=== PATIENT | female | born 2005 | race Hispanic/Latino ===

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

== ENCOUNTER 2024-07-14 16:28 | Emergency (ER) | payer SELFPAY ==
[~2024-07-14] VITALS: Ht 154.9 cm; Wt 76.3 kg
[2024-07-14] MEDS ORDERED: SULF1TAB42 PO (18:03)
--- NOTE | 2024-07-14 18:04 | ERN ---
ED Note History of Present Illness Stated Complaint: BREAST ISSUE Chief Complaint: Breast Problem Time Seen by MD: 16:49 Time Seen by Midlevel: 16:49 Dictation: Patient is a 19-year-old female with no past medical history who presents to the emergency department with complaints of left breast redness onset two days ago. Patient denies any fevers or drainage. Denies any trauma insect bite. Allergies: Coded Allergies: No Known Allergies (Unverified Allergy, Unknown, 07/01/21) No Known Drug Allergies (Unverified Allergy, Unknown, 07/23/21) Home Meds Active Scripts Clindamycin HCl (Clindamycin HCl) 300 Mg Capsule, 1 CAP PO QID for 10 Days, #40 CAP 0 Refills Prov:[facility]I [facility] 07/14/24 Reported Medications Vit #76/Iron,Carb/FA (Pnv 29-1 Tablet) 1 Each Tablet, 1 EACH PO AM, TAB 07/22/21 Ferrous Sulfate (Iron) 325 Mg Tablet, 325 MG PO BID, TAB 07/22/21 Discontinued Scripts Sulfamethoxazole/Trimethoprim (Bactrim Ds Tablet) 800 Mg-160 Mg Tablet, 1 TAB PO BID for 7 Days, #14 TAB 0 Refills Prov:Y[facility]MANI [facility] 07/14/24 Past Medical History Past Medical History: No Pertinent History Surgical History: None : 1 Para: 1 RN Note Reviewed/Agreed w/PFSH: Yes Review of System Dictation Constitutional: Negative for fever,chills, and weight loss Eyes: Negative for injury, pain,redness, and discharge ENT: Negative for injury,pain or swelling Cardiovascular: Negative for chest pain, palpitations, and edema Respiratory: Negative for shortness of breath, cough, and wheezing, Abdomen/GI: Negative for abdominal pain, nausea, vomiting, diarrhea, and constipation Back: Negative for injury and pain : Negative for injury, bleeding and discharge MS/Extremity: Negative for injury and deformity Skin: Negative for rash, and discoloration. positive for cellulitis of left breast. Neuro: Negative for headache, weakness, numbness, tingling, and seizure Psych: Negative for suicide ideation, homicidal ideation, and hallucinations Initial Vital Sign VS Vital Signs Date Time Temp Pulse Resp B/P (MAP) Pulse Ox O2 Delivery O2 Flow Rate FiO2 07/14/24 16:30 99.0 98 16 104/60 99 Room Air 07/14/24 16:38 0 21 Physical Exam Dictation Vital Signs reviewed General Appearance: Alert, oriented x 3, no acute distress, well developed, nourished. Head and Face: non-traumatic. Eyes: PERRL, pink conjunctivas, eyelid no trauma, anterior chamber with arcus senilis. Ears: Pinnas intact and no signs of trauma or erythema ear canals clear and no discharge TM no erythema Nose: No discharge, no bleeding. Oropharynx: Mouth normal, tongue pink. pharynx clear,no erythema, tonsils no exudates, no abscesses noted, mucous membrane moist Neck: Supple, non-tender, no thyromegaly, no masses, no JVD, no bruits Breast:Deferred Chest:No tenderness, no crepitus, no paradoxical movement, no retractions Lungs:Clear, well-ventilated, symmetric, no rales, no wheezing, no rhonchi, no stridor, good breath sounds bilaterally Heart: Regular rate, regular rhythm, no murmur, no gallops Vascular: no peripheral edema, Abdomen: Soft, positive bowel sounds, nondistended, no guarding, nontender, no rebound, no masses no hepatomegaly, no splenomegaly, no Degroot's sign, no hernias. Rectal: Deferred Genital: Deferred Neurological: Normal speech, motor function intact, sensory function intact Musculoskeletal: Neck nontender, full range of motion, back nontender, full range of motion, Extremities: nontender, full range of motion Skin: Color pink, dry, no turgor, no rash, no lacerations, no abrasions, no contusions.erythema to left breast aroun 3 0clock near nipple area, no drainage, warmth to touch, about 3cm in diameter. Lymphatic: Deferred Results (Laboratory/Radiology) Labs Reviewed?: Yes ED Course ED Course Orders Procedure Category Date Status Time ,Urine Test LAB 07/14/24 Logged 17:36 Ceftriaxone 1g Vial PHA 07/14/24 Complete (Rocephine 1g Inj) 18:30 Current Medications Medications (Trade) Dose Ordered Sig/Susan Route PRN Reason Start Time Stop Time Status Last Admin Dose Admin Ceftriaxone Sodium (ROCEphine 1G INJ) 1 gm ONCE ONCE IV 07/14/24 18:30 07/14/24 18:31 DC Vital Signs Date Time Temp Pulse Resp B/P (MAP) Pulse Ox O2 Delivery O2 Flow Rate FiO2 07/14/24 16:38 99.0 98 16 104/60 99 Room Air* 0 21 07/14/24 16:30 99.0 98 16 104/60 99 Room Air Medical Decision Making MDM Patient is a 19-year-old female with no past medical history who presents to the emergency department with complaints of left breast redness onset two days ago. Patient denies any fevers or drainage. Denies any trauma insect bite. Patient with cellulitis to left breast. Nontoxic appearing. No fevers. We will be giving antibiotics and discharged to follow up with PCP. Differential diagnosis: Cellulitis, abscess, allergic reaction Need for hospitalization: Patient does not meet criteria for hospitalization. There are no social concerns with this patient. DX & DISP Disposition: Discharge Departure Impression: Primary Impression: Cellulitis of left breast Condition: Stable Scripts Clindamycin HCl (Clindamycin HCl) 300 Mg Capsule 1 CAP PO QID for 10 Days, #40 CAP 0 Refills Prov: YASMANI JOHANSEN 07/14/24 Additional Instructions: Please follow up with your primary doctor in 1-2 days. If symptoms worsen please return to ER., severe fever develop, worsening infection. Taking medications as prescribed. FOLLOW-UP WITH PRIMARY CARE PROVIDER IN 1 TO 2 DAYS. TAKE MEDICATIONS DIRECTED HERE IN THE EMERGENCY ROOM. OKAY TO CONTINUE HOME MEDICATIONS UNLESS OTHERWISE DISCUSSED DURING YOUR VISIT IN THE EMERGENCY ROOM TODAY. RETURN TO YOUR NEAREST EMERGENCY ROOM IF SYMPTOMS WORSEN OR IF THERE IS NO IMPROVEMENT. CALL 911 IF YOU NEED IMMEDIATE ASSISTANCE. TAKE TYLENOL OR MOTRIN [id number] NEEDED AND IF NO CONTRAINDICATIONS ARE PRESENT. INCREASE ORAL HYDRATION. A WOUND CULTURE OR URINE CULTURE WAS ORDERED HERE IN THE EMERGENCY ROOM DEPARTMENT PLEASE FOLLOW-UP WITH PRIMARY CARE PROVIDER AND ADVISE THEM TO GET REPEAT PORTS FROM OUR FACILITY. IF YOU HAD ANY ANA WRAP/SPLINTS THAT WERE APPLIED HERE, PLEASE DO NOT REMOVE THEM UNTIL YOU SEE YOUR PRIMARY CARE OR SPECIALTY. Referrals: SELF,REFERRAL (PCP) Time of Disposition: 18:32 I have reviewed the case, and I agree with, Diagnosis and Plan YASMANI JOHANSEN Jul 14, 2024 18:04
[2024-07-14] MEDS ORDERED: CLIN-141 PO (18:31)
[2024-07-14 19:36] VITALS: BP 115/62; PULSE 89; RESP 16; TEMP 98.9; O2SAT 99
--- NOTE | 2024-07-14 19:41 | NUR ---
DISCHARGE WITHOUT LABS
[2024-07-14] MEDS: cefTRIAXone 1G VIAL IV ONE (19:43)
--- NOTE | 2024-07-14 20:03 | NUR ---
NO REACTION TO MEDICATION NOTED. ALL QUESTIONS ANSWERED
== END 2024-07-14 20:03 | disposition home or self-care (01) ==
LOC: EDH 16:28
DX: N61.0 Mastitis without abscess (principal)
CPT/HCPCS: 99283; 96374; J0696